=== PATIENT | male | born 1980 | race Caucasian/White ===

== ENCOUNTER 2021-08-28 09:11 | Emergency (ER) | payer MEDICAID ==
[~2021-08-28] VITALS: Ht 165.1 cm; Wt 64.0 kg
[2021-08-28] MEDS ORDERED: LIDOCAINE 5% PATCH TOP SCH (10:00)
[2021-08-28] MEDS ORDERED: KETOROLAC 15MG/ML VIAL IM ONE (10:00)
[2021-08-28 11:46] VITALS: BP 110/79
== END 2021-08-28 11:53 | disposition home or self-care (01) ==
LOC: ER 09:11
DX: M25.521 Pain in right elbow (principal); V43.52XA Car driver injured in collision with other type car in traffic accident, initial encounter; Y93.89 Activity, other specified; Y92.488 Other paved roadways as the place of occurrence of the external cause
CPT/HCPCS: 71101; 73060; 73080; 73090; 73590; 96372; 99284; J1885

== ENCOUNTER 2022-03-16 21:14 | Emergency (ER) | payer SELFPAY ==
[~2022-03-16] VITALS: Ht 170.2 cm; Wt 75.0 kg
[2022-03-16] MEDS ORDERED: KETOROLAC 60MG/2ML VIAL IM ONE (22:30)
[2022-03-16 23:18] LABS: BASOPHILS % 1.2 % (0.0-2.0); EOSINOPHILS % 1.1 % (0.0-5.0); HEMATOCRIT. 41.5 % (42.0-52.0); HEMOGLOBIN. 14.6 g/dL (14.0-18.0); LYMPHOCYTES % 16.4 % (20.0-50.0); MEAN CORPUSCULAR HEMOGLOBIN 29.3 pg (28.0-32.0); MEAN CORPUSCULAR VOLUME 83.2 fL (80.0-94.0); MEAN PLATELET VOLUME 7.6 fl (7.4-10.4); MONOCYTES % 11.3 % (2.0-8.0); PLATELET 149 x1000/uL (130-400); RED CELL DISTRIBUTION WIDTH 13.8 % (11.6-14.6)
[2022-03-16 23:22] LABS: CHLORIDE 98 mEq/L (98-107)
[2022-03-16 23:31] LABS: CREATINE KINASE 120 IU/L (39-308); PHOSPHORUS 3.2 mg/dL (2.5-4.9)
[2022-03-16] MEDS ORDERED: POTASSIUM CHLORIDE 20MEQ TABLET SR PO ONE (23:45)
[2022-03-16] MEDS ORDERED: MAGNESIUM OXIDE 400MG TABLET PO SCH (23:45)
[2022-03-16] MEDS ORDERED: IBUP-2028 MT (23:47)
[2022-03-16] MEDS ORDERED: TOPUD PO (23:47)
[2022-03-17 00:01] VITALS: BP 126/82
== END 2022-03-17 00:10 | disposition home or self-care (01) ==
LOC: ER 21:14
DX: R53.81 Other malaise (principal); R53.83 Other fatigue; M79.10 Myalgia, unspecified site
CPT/HCPCS: 36415; 71045; 80053; 82550; 83735; 84100; 84484; 85025; 93005; 96372; 99285; J1885